=== PATIENT | female | born 1940 | race Caucasian/White ===

== ENCOUNTER 2017-01-21 11:34 | Observation (INO) | payer OTHER ==
[~2017-01-21] VITALS: Ht 160 cm; Wt 60.4 kg
[2017-01-21 12:08] LABS: BASOPHIL COUNT 0.1 K/uL (0-0.1); EOSINOPHIL (%) 1.5 % (0-5); EOSINOPHIL COUNT 0.2 K/uL (0-0.3); HEMATOCRIT 44.6 % (36.0-46.0); IMMATURE GRANULOCYTE (%) 0.8 % (0.0-0.7); IMMATURE GRANULOCYTE COUNT 0.1 K/uL; INSTRUMENT ABS NEUTROPHIL CT 6.3 K/uL; LYMPHOCYTE COUNT 5.2 K/uL (1.0-2.8); MCH 31.4 PG (29.0-34.0); MCHC 34.1 G/DL (30.0-36.0); MCV 92.1 FL (83-99); MEAN PLAT.VOLUME 10.7 uM^3 (9.5-12.4); MONOCYTE COUNT 1.9 K/uL (0-0.8); NEUTROPHIL (%) 45.5 % (45-76); NEUTROPHIL COUNT 6.3 K/uL (1.8-6.4); PLATELET COUNT 260 K/uL (156-360); RBC DIS.WIDTH-SD 43.7 % (39-53); RED BLOOD COUNT 4.84 M/uL (3.80-5.20); WHITE BLOOD COUNT 13.7 K/uL (4.1-10.2)
[2017-01-21 12:16] LABS: CHLORIDE 103 mEq/L (99-109); POTASSIUM 3.2 mEq/L (3.7-5.4); SODIUM 139 mEq/L (136-147)
[2017-01-21 12:18] LABS: GLUCOSE 158 mg/dL (70-99)
[2017-01-21 12:19] LABS: ANION GAP 16 MEQ/L (2-14)
[2017-01-21 12:20] LABS: TOTAL BILIRUBIN 1.1 mg/dL (0.0-1.0)
[2017-01-21 12:21] LABS: ALKALINE PHOSPHATASE 87 IU/L (3-129)
[2017-01-21 12:22] LABS: GFR ESTIMATE (CALCULATED) 57 mL/min/
[2017-01-21 12:25] LABS: CREATINE KINASE 72 IU/L (1-294); TOTAL CK 72 IU/L (1-294)
[2017-01-21 12:28] LABS: TROP-I INTERPRETATION NEGATIVE; TROPONIN-I < 0.01 ng/mL (0.0-0.30)
[2017-01-21 12:44] LABS: UREA NITROGEN (BUN) 17 mg/dL (9-23)
[2017-01-21] MEDS ORDERED: PANTOPRAZOLE SO40 MG PO (14:12)
[2017-01-21] MEDS ORDERED: CLONIDINE HCL0.1 MG PO (14:13)
[2017-01-21] MEDS ORDERED: METOPROLOL TART25 MG PO (14:13)
[2017-01-21] MEDS ORDERED: TRAMADOL HCL50 MG PO (14:13)
[2017-01-21] MEDS ORDERED: LORAZEPAM0.5 MG PO (14:13)
[2017-01-21 14:14] LABS: ADD MIUA? YES; BILIRUBIN NEGATIVE; BLOOD SMALL; COLOR YELLOW ((YELLOW)); GLUCOSE (STRIP) NEGATIVE; KETONES NEGATIVE; LEUKOCYTES NEGATIVE; NITRITE NEGATIVE; PROTEIN (STRIP) NEGATIVE; UROBILINOGEN 0.2 MG/DL (0.2-1.0)
[2017-01-21] MEDS ORDERED: NORVASC5 MG PO (14:14)
[2017-01-21] MEDS ORDERED: PRAVASTATIN SOD40 MG PO (14:14)
[2017-01-21] MEDS ORDERED: VALSARTAN-HCTZ1 EAC3 PO (14:14)
[2017-01-21] MEDS ORDERED: VITAMIN D31000 UNI2 PO (14:15)
[2017-01-21] MEDS ORDERED: CRANBERRY TABL1 EACH PO (14:15)
[2017-01-21] MEDS ORDERED: CINNAMON500 MG PO (14:15)
[2017-01-21] MEDS ORDERED: FISH OIL 1,4001 EACH PO (14:16)
[2017-01-21] MEDS ORDERED: CENTRUM SILVER1 EAC3 PO (14:16)
[2017-01-21] MEDS ORDERED: REFRESH TEARS15 ML BOTH EYES (14:18)
[2017-01-21 14:22] LABS: BACTERIA NONE SEEN /HPF; EPITHELIAL CELLS NONE SEEN /HPF; MUCUS TRACE /LPF; RED BLOOD CELLS 0-5 /HPF (0-5); UCUL ADDED? NO; WHITE BLOOD CELLS 0-5 /HPF (0-5)
[2017-01-21 14:37] LABS: AMPHETAMINE NEGATIVE (500 ng/mL); BARBITURATES NEGATIVE (200 ng/mL); BENZODIAZEPINES PRESUMPTIVE POSITIVE (150 ng/mL); COCAINE NEGATIVE (150 ng/mL); INTERNAL CONTROLS VALID? YES; METHADONE NEGATIVE (200 ng/mL); METHAMPHETAMINE NEGATIVE (500 ng/mL); OPIATES (MORPHINE) NEGATIVE (100 ng/mL); OXYCODONE NEGATIVE (100 ng/mL); PHENCYCLIDINE NEGATIVE (25 ng/mL); PROPOXYPHENE NEGATIVE (300 ng/mL); THC CANNABINOIDS NEGATIVE (50 ng/mL); TRICYCLIC ANTIDEPRESSANTS NEGATIVE (300 ng/mL)
[2017-01-21 14:38] LABS: ADD MEDTOX COMMENT Y
[2017-01-21 15:19] LABS: BENZODIAZEPINES QUANT VALUE 0 NG/ML; BENZODIAZEPINES, URINE SCREEN Negative (200 ng/mL)
[2017-01-21 15:40] VITALS: BP 138/76
[2017-01-21 15:52] VITALS: BP 170/76
[2017-01-21 19:00] VITALS: BP 142/77
[2017-01-21 19:43] LABS: TROP-I INTERPRETATION NEGATIVE; TROPONIN-I 0.03 ng/mL (0.0-0.30)
[2017-01-21 22:47] VITALS: BP 108/56
[2017-01-21 23:34] LABS: POINT-OF-CARE METER ID UU13113831
[2017-01-22 01:29] LABS: TROP-I INTERPRETATION NEGATIVE; TROPONIN-I 0.02 ng/mL (0.0-0.30)
[2017-01-22 03:35] VITALS: BP 99/52
[2017-01-22 06:38] LABS: HEMATOCRIT 36.4 % (36.0-46.0); MCH 32.4 PG (29.0-34.0); MCHC 34.6 G/DL (30.0-36.0); MCV 93.6 FL (83-99); MEAN PLAT.VOLUME 11.4 uM^3 (9.5-12.4); PLATELET COUNT 236 K/uL (156-360); RBC DIS.WIDTH-CV 13.3 % (11.8-14.6); RBC DIS.WIDTH-SD 45.1 % (39-53); RED BLOOD COUNT 3.89 M/uL (3.80-5.20); WHITE BLOOD COUNT 11.1 K/uL (4.1-10.2)
[2017-01-22 07:10] VITALS: BP 138/78
[2017-01-22 07:39] LABS: ANION GAP 10 MEQ/L (2-14); CHLORIDE 110 MEQ/L (99-109); POTASSIUM 3.3 MEQ/L (3.7-5.4); SAMPLE HEMOLYSIS CHECK 0; SAMPLE ICTERIC CHECK 0; SAMPLE LIPEMIA CHECK 0; SODIUM 144 MEQ/L (136-147)
[2017-01-22 07:45] LABS: GFR ESTIMATE (CALCULATED) > 59 mL/min/; GLUCOSE 127 mg/dL (70-99); UREA NITROGEN (BUN) 8 mg/dL (9-23)
[2017-01-22 08:54] LABS: MAGNESIUM 2.1 mg/dl (1.3-2.7)
[2017-01-22 11:42] VITALS: BP 141/78
[2017-01-22] MEDS ORDERED: KEPPRA500 MG PO (13:13)
[2017-01-22] MEDS ORDERED: PROTONIX40 MG PO (15:08)
== END 2017-01-22 15:16 | disposition home or self-care (01) ==
LOC: EME 11:34 → EDOF 13:44 → 5WEST 15:37
PROVIDERS: Emergency Medicine; Internal Medicine
DX: G40.909 Epilepsy, unspecified, not intractable, without status epilepticus (principal); E87.6 Hypokalemia; R55 Syncope and collapse; S06.6X0A Traumatic subarachnoid hemorrhage without loss of consciousness, initial encounter; W19.XXXA Unspecified fall, initial encounter; I10 Essential (primary) hypertension; K21.9 Gastro-esophageal reflux disease without esophagitis; E78.5 Hyperlipidemia, unspecified; Z87.891 Personal history of nicotine dependence; Z86.73 Personal history of transient ischemic attack (TIA), and cerebral infarction without residual deficits
CPT/HCPCS: 70450; 70551; 71010; 80048; 80053; 81003; 82330; 82550; 82553; 82948; 83735; 84100; 84484; 84999; 85025; 85027; 87040; 93005; 93880; 99281; 99285; G0378; J1650; J1953; J2060; J2405; J7050